=== PATIENT | female | born 1960 | race Caucasian/White ===

== ENCOUNTER → 2021-10-07 10:03 | Outpatient (CLI) | payer BC, SELFPAY ==
--- NOTE | ~2021-10-07 | MR_ITS ---
EXAMINATION: MR lumbar spine wo con DATE: 10/07/2021 10:54 INDICATION: lbp left hip pain down leg to knee [id number], no trauma/ca . TECHNIQUE: Magnetic resonance imaging (MRI) of the lumbar spine was performed without intravenous con trast. Sequences included sagittal T2-weighted FSE, sagittal T2-weighted FS FSE, sagittal T1-weighted FSE, and axial T2-weighted FSE. COMPARISON: None FINDINGS: The last fully formed and hydrated disc is designated L5-S1. The marrow signal is benign an d homogenous. Conus terminates at L2. Disc dehydration from L3 to S1. Sacral Tarlov cysts. The follow ing disc levels are specifically discussed: T11-T12: Mild diffuse bulge. There is no facet joint osteoarthritis. There is no neural foraminal jack nosis. There is no central canal stenosis. T12-L1: The disc does not extend beyond the endplate margin. There is no facet joint osteoarthritis. There is no neural foraminal stenosis. There is no central canal stenosis. L1-L2: Mild diffuse bulge. There is mild facet joint osteoarthritis. There is no neural foraminal jack nosis. There is no central canal stenosis. L2-L3: Mild diffuse bulge. There is moderate facet joint osteoarthritis. There is no neural foraminal stenosis. There is no central canal stenosis. L3-L4: Moderate diffuse bulge. There is moderate facet joint osteoarthritis. There is no neural herb inal stenosis. There is no central canal stenosis. L4-L5: Moderate diffuse bulge. There is moderate facet joint osteoarthritis. There is no neural herb inal stenosis. There is no central canal stenosis. L5-S1: Mild diffuse bulge, superimposed 3 mm central extrusion. There is mild facet joint osteoarthri tis. There is no neural foraminal stenosis. There is no central canal stenosis. IMPRESSION: 1. No severe central canal or neural foraminal narrowing. 2. Multilevel mild and moderate degenerative disc and facet changes described above. Reviewed, dictated and finalized at location K. IMPRESSION: 1. No severe central canal or neural foraminal narrowing. 2. Multilevel mild and moderate degenerative disc and facet changes described a jackie.
== END ==
PROVIDERS: PCP Nurse Practitioner Family
DX: M51.36 Other intervertebral disc degeneration, lumbar region (principal)
CPT/HCPCS: 72148

== ENCOUNTER → 2021-10-14 07:55 | Outpatient (CLI) | payer BC, SELFPAY ==
--- NOTE | ~2021-10-14 | MR_ITS ---
EXAMINATION: MR hip LT wo con DATE: 10/14/2021 08:58 INDICATION: Left hip pain radiating down the thigh TECHNIQUE: Magnetic resonance imaging (MRI) of the left hip was performed without intravenous contra st. Sequences included full-field axial PD-weighted FS FSE and T1-weighted FSE, coronal of the pelvis with PD-weighted FS FSE, T2-weighted FSE and T1-weighted FSE, small field of view of the left hip w ith axial PD-weighted FS FSE, sagittal PD-weighted FS FSE, coronal PD-weighted FS FSE and coronal T2 weighted FSE. Additional radial T1-weighted FGR oriented orthogonal to the acetabular rim were obtai hannah for evaluation of the labrum. COMPARISON: None FINDINGS: Bones/labrum/cartilage: Alignment is normal. Marrow edema at the left femoral head and neck peripheral to a region of osteone crosis with double line sign involving approximately 4 cm diameter region of the anteromedial aspect of the femoral head. No rim sign or cortical discontinuity to suggest an unstable fragment. Deep manish dral fissuring along the cephalad aspect of the left acetabulum. Partial thickness cartilage loss thr oughout the femoral head and along the posterior acetabulum. Small focus of mild subarticular edema-l haile marrow signal change at the apex of the left femoral head. No fracture or pathologic marrow repla cing process. The acetabular labrum remains normal. Although not diagnostically evaluated on the larg er field of view images, there are regions of subarticular cystic change at the anterosuperior and po sterior right acetabulum and at the superomedial right femoral head suggesting with additional at rl st mild osteoarthritis with high-grade chondromalacia. Fluid: Moderate-sized left hip joint effusion. Physiologic amount fluid at the right hip joint. Soft tissues: No asymmetric muscular atrophy or abnormal muscle signal in the pelvis or visualized proximal thighs. Mild tendinopathy without discrete tear at the bilateral gluteus medius and minimus tendons. The phyllis opsoas and proximal hamstring tendons are normal. The uterus is not identified and has likely been tamayo rgically resected. Limited evaluation of visceral organs of the pelvis is otherwise unremarkable. No pathologically enlarged pelvic/inguinal lymphadenopathy. IMPRESSION: 1. Ficat and Adrienne stage II osteonecrosis involving approximately 4 cm diameter region of the anterom edial left femoral head with associated reactive marrow edema and moderate-sized left hip joint effus ion 2. Bilateral mild hip osteoarthritis with regions of high-grade chondromalacia more extensive on the right. Reviewed, dictated and finalized at location B. IMPRESSION: 1. Ficat and Adrienne stage II osteonecrosis involving approximately 4 cm diameter region of the anteromedial left femoral head with associated reactive marrow e brooke and moderate-sized left hip joint effusion 2. Bilateral mild hip osteoarthritis with regions of high-grade chondromalacia more extensive on the right.
== END ==
PROVIDERS: PCP Nurse Practitioner Family
DX: M25.552 Pain in left hip (principal); M87.852 Other osteonecrosis, left femur; M79.89 Other specified soft tissue disorders; M25.452 Effusion, left hip; M16.0 Bilateral primary osteoarthritis of hip; M94.252 Chondromalacia, left hip; M94.251 Chondromalacia, right hip
CPT/HCPCS: 73721